=== PATIENT | male | born 1980 | race Caucasian/White ===

== ENCOUNTER 2024-07-15 19:40 | Emergency (ER) | payer BC ==
[~2024-07-15] VITALS: Ht 180.3 cm; Wt 75.0 kg
[2024-07-15 19:50] VITALS: O2SAT 97
[2024-07-15 20:00] VITALS: BP 147/106; PULSE 78; RESP 18; TEMP 36.9; O2SAT 98
[2024-07-15] MEDS: BACITRACIN ZINC OINT UDPKT TOP ONE (21:45)
[2024-07-15] MEDS: LIDOCAINE HCL/PF 1% 10 MG/ML 5ML VIAL INFIL ONE (21:45)
[2024-07-15] MEDS: ACETAMINOPHEN 325MG TABLET PO ONE (21:57)
[2024-07-15] MEDS: TETANUS, DIPHTHERIA, PERTUSSIS VAC/PF 0.5ML (>10YR OLD) IM ONE (22:42)
[2024-07-15] MEDS ORDERED: AMOX1TAB16 MT (22:50)
== END 2024-07-15 23:24 | disposition home or self-care (01) ==
LOC: ER 19:40
DX: S51.811A Laceration without foreign body of right forearm, initial encounter (principal); E78.00 Pure hypercholesterolemia, unspecified; Z88.1 Allergy status to other antibiotic agents; Z88.2 Allergy status to sulfonamides; W54.0XXA Bitten by dog, initial encounter; Y93.01 Activity, walking, marching and hiking; Y92.89 Other specified places as the place of occurrence of the external cause; Y99.8 Other external cause status
CPT/HCPCS: 90715; 12002; 90471; 99283; J2003; Z7610

== ENCOUNTER 2024-07-28 13:04 | Emergency (ER) | payer BC ==
[~2024-07-28] VITALS: Ht 180.3 cm; Wt 74.0 kg
[~2024-07-28 13:04] MED LIST: AMOX1TAB16 MT
[2024-07-28 13:19] VITALS: O2SAT 99
[2024-07-28 15:25] VITALS: BP 134/78; PULSE 79; RESP 14; O2SAT 99
== END 2024-07-28 16:21 | disposition home or self-care (01) ==
LOC: ER 13:21
DX: S51.811D Laceration without foreign body of right forearm, subsequent encounter (principal); E78.00 Pure hypercholesterolemia, unspecified; Z88.1 Allergy status to other antibiotic agents; Z88.2 Allergy status to sulfonamides; W54.0XXD Bitten by dog, subsequent encounter
CPT/HCPCS: 99281; Z7610